=== PATIENT | male | born 1955 | race Hispanic/Latino ===

== ENCOUNTER 2022-08-26 09:31 | Outpatient (CLI) | payer OTHER ==
[~2022-08-26 09:31] MED LIST: Magnevist 469MG/ML 20 ML VIAL ONE
== END 2022-08-26 09:32 | disposition home or self-care (01) ==
LOC: CSHMRI 09:31
PROVIDERS: ATTEND Urology
DX: R97.20 Elevated prostate specific antigen [PSA] (principal); Z98.890 Other specified postprocedural states
CPT/HCPCS: 72197; 82565

== ENCOUNTER 2022-10-17 14:24 | Outpatient (CLI) | payer OTHER | END 2022-10-17 14:25 | disposition home or self-care (01) | LOC: CSHMRI 14:24 | PROVIDERS: ATTEND Psychiatry & Neurology Neurology | DX: R56.9 Unspecified convulsions (principal); R90.82 White matter disease, unspecified | CPT/HCPCS: 70553 ==

== ENCOUNTER 2023-11-11 08:17 | Outpatient (CLI) | payer OTHER ==
[2023-11-11] MEDS ORDERED: Magnevist 469MG/ML 20 ML VIAL ONE (10:33)
== END 2023-11-11 08:18 | disposition home or self-care (01) ==
LOC: CSHMRI 08:17
PROVIDERS: ATTEND Urology
DX: R97.20 Elevated prostate specific antigen [PSA] (principal); Z98.890 Other specified postprocedural states
CPT/HCPCS: 72197